=== PATIENT | female | born 2000 | race Caucasian/White ===

== ENCOUNTER 2020-09-03 12:19 | Observation (INO) ==
[2020-09-03] MEDS ORDERED: cefOXitin 1,000 MG in 0.9 % Sodium Chloride Mini Bag 100 ML IVPB ONE (12:38)
[2020-09-03] MEDS ORDERED: Ringers Solution, Lactated 1,000 ML IVC SCH (12:45)
[2020-09-03 13:12] LABS: Hematocrit 36.8 % (35.3-44.9); Hemoglobin 12.5 g/dL (11.5-15.4); Mean Corpuscular Hemoglobin 30.1 pg (28.0-33.3); Mean Corpuscular Volume 88.7 fL (83.0-100.0); Platelet Count 372 K/mcL (140-400); Red Blood Count 4.15 M/mcL (3.82-4.97); Red Cell Distribution Width 12.1 % (11.5-14.5); White Blood Count 7.9 K/mcL (4.3-11.1)
[2020-09-03] MEDS ORDERED: *HR* Midazolam HCl 2 MG/2 ML VIAL ONE (13:16)
[2020-09-03] MEDS ORDERED: *HR* FentaNYL (PF) 100 MCG/2 ML VIAL ONE (13:16)
[2020-09-03] MEDS ORDERED: *HR* Propofol 200 MG/20 ML VIAL IVP ONE (13:16)
[2020-09-03] MEDS ORDERED: Lidocaine -MPF 2% 5 ML VIAL ONE (13:17)
[2020-09-03] MEDS ORDERED: *HR* FentaNYL (PF) 100 MCG/2 ML VIAL IVP PRN (13:36)
[2020-09-03] MEDS ORDERED: *HR* OxyCODONE Immed Rel 5 MG TABLET PO PRN (13:36)
[2020-09-03] MEDS ORDERED: Acetaminophen IV 1,000 MG/100 ML BAG IVPB ONE (14:29)
[2020-09-03] MEDS ORDERED: Ondansetron 4 MG/2 ML VIAL ONE (14:30)
[2020-09-03] MEDS ORDERED: EPHEDrine 50 MG/ML VIAL ONE (14:31)
[2020-09-03] MEDS ORDERED: Ketorolac 30 MG/ML VIAL ONE (14:31)
[2020-09-03 16:41] VITALS: BP 100/59; PULSE 80; TEMP 98.2; O2SAT 98
[2020-09-03] MEDS ORDERED: Methylergonovine 0.2 MG/ML AMPUL IM ONE (16:46)
== END 2020-09-03 16:47 | disposition home or self-care (01) ==
LOC: 1NENULAB 12:19 → SAMDAY 12:19 → 1NENULAB 12:20
PROVIDERS: ADMIT Obstetrics & Gynecology; ATTEND Obstetrics & Gynecology

== ENCOUNTER → 2021-11-24 18:20 | Observation (INO) ==
[2021-11-24 16:32] LABS: Bilirubin,Urine Negative (Negative); Blood,Urine Negative (Negative); Clarity,Urine Clear (Clear); Color,Urine Light-Yellow (Yellow); Glucose,Urine (UA) Normal (Normal); Ketones,Urine Negative (Negative); Leukocyte Esterase,Urine Negative (Negative); Nitrite,Urine Negative (Negative); Protein,Urine Negative (Neg-Trace); Specific Gravity,Urine 1.008 (1.010-1.025); Urobilinogen,Urine Normal (Normal)
== END | disposition home or self-care (01) ==
LOC: 1NENULAB
PROVIDERS: ADMIT Advanced Practice Midwife; ATTEND Advanced Practice Midwife

== ENCOUNTER → 2021-12-05 10:32 | Observation (INO) ==
[2021-12-05 09:45] LABS: Bacteria,Urine Few per hpf (None-Few); Bilirubin,Urine Negative (Negative); Blood,Urine Trace (Negative); Clarity,Urine Turbid (Clear); Color,Urine Light-Yellow (Yellow); Glucose,Urine (UA) Normal (Normal); Ketones,Urine Negative (Negative); Leukocyte Esterase,Urine Trace (Negative); Mucus,Urine Few per lpf (None-Few); Nitrite,Urine Negative (Negative); Protein,Urine Trace mg/dL (Neg-Trace); RBC,Urine 15-30 per hpf (0-3); Specific Gravity,Urine 1.014 (1.010-1.025); Squamous Epithelial Cell,Urine Few per hpf (None-Few); Urobilinogen,Urine Normal (Normal)
== END | disposition home or self-care (01) ==
LOC: 1NENULAB
PROVIDERS: ADMIT Advanced Practice Midwife; ATTEND Advanced Practice Midwife